=== PATIENT | female | born 1990 | race Caucasian/White ===

== ENCOUNTER 2017-05-18 16:34 | Emergency (ER) | payer OTHER ==
[~2017-05-18] VITALS: Ht 162.6 cm; Wt 58.3 kg
[~2017-05-18 16:34] MED LIST: CLEOCIN150 MG PO; DOXYCYCLINE HY100 MG PO; FIORICET WI1 CAPSULE PO; FLAGYL500 MG PO; HYDROCODON-ACE1 EAC7 PO; KLONOPIN0.5 M1 PO; LORAZEPAM0.5 MG PO; MACROBID100 MG PO; Motrin PO; NAPROSYN375 MG PO; PREDNISONE20 MG PO; PRENATAL1 EACH PO; PROMETHAZINE HC25 M1 PO; ROBITUSSIN AC,T10 ML PO; SERTRALINE HCL100 MG PO; SERTRALINE HCL50 MG PO; Tylenol Extra Streng PO; ULTRAM50 MG PO; ZITHROMAX Z-PA250 MG PO; ZITHROMAX250 MG PO; ZOFRAN ODT4 MG PO; ZOFRAN4 MG PO; ~No Medications
[2017-05-18 17:23] LABS: HEMATOCRIT 42.2 % (36.0-46.0); MCH 31.2 PG (29.0-34.0); MCHC 32.9 G/DL (30.0-36.0); MCV 94.8 FL (83-99); MEAN PLAT.VOLUME 9.5 uM^3 (9.5-12.4); PLATELET COUNT 280 K/uL (156-360); RBC DIS.WIDTH-CV 11.9 % (11.8-14.6); RBC DIS.WIDTH-SD 41.4 % (39-53); RED BLOOD COUNT 4.45 M/uL (3.80-5.20); WHITE BLOOD COUNT 7.9 K/uL (4.1-10.2)
[2017-05-18 17:32] LABS: CHLORIDE 108 mEq/L (99-109); POTASSIUM 4.2 mEq/L (3.7-5.4); SODIUM 140 mEq/L (136-147)
[2017-05-18 17:34] LABS: GLUCOSE 94 mg/dL (70-99)
[2017-05-18 17:36] LABS: ANION GAP 11 MEQ/L (2-14); TOTAL BILIRUBIN 0.5 mg/dL (0.0-1.0)
[2017-05-18 17:38] LABS: ALKALINE PHOSPHATASE 79 IU/L (3-129); GFR ESTIMATE (CALCULATED) > 59 mL/min/
[2017-05-18 17:39] LABS: UREA NITROGEN (BUN) 10 mg/dL (9-23)
[2017-05-18 17:47] LABS: QUANTITATIVE HCG 423.5 MIU/ML
[2017-05-18 18:31] LABS: ADD MIUA? YES; BILIRUBIN SMALL; BLOOD NEGATIVE; COLOR AMBER ((YELLOW)); GLUCOSE (STRIP) NEGATIVE; KETONES NEGATIVE; LEUKOCYTES NEGATIVE; NITRITE NEGATIVE; PROTEIN (STRIP) 30; SPECIFIC GRAVITY 1.033 (1.000-1.030)
[2017-05-18 18:45] LABS: BACTERIA 1+ /HPF; CASTS PRESENT /LPF; CRYSTALS NONE SEEN; EPITHELIAL CELLS 1+ /HPF; HYALINE CASTS 0-5 /LPF; MUCUS 3+ /LPF; RED BLOOD CELLS 0-5 /HPF (0-5); UCUL ADDED? NO; WHITE BLOOD CELLS 0-5 /HPF (0-5)
[2017-05-18 20:50] VITALS: BP 94/72
== END 2017-05-18 20:51 | disposition home or self-care (01) ==
LOC: EME 16:34
DX: O26.891 Other specified pregnancy related conditions, first trimester (principal); R10.32 Left lower quadrant pain; N83.201 Unspecified ovarian cyst, right side; O99.331 Smoking (tobacco) complicating pregnancy, first trimester; F17.200 Nicotine dependence, unspecified, uncomplicated
CPT/HCPCS: 76801; 76856; 80053; 81003; 84702; 85027; 87086; 99281; 99284; J1885

== ENCOUNTER → 2017-11-04 | Outpatient (CLI) | payer OTHER ==
[~2017-11-04] VITALS: Ht 162.6 cm; Wt 64.2 kg
[~2017-11-04] MED LIST changes: +PRENATAL VITAM1 EA11 PO
[2017-11-04 10:11] VITALS: BP 107/65
== END | disposition home or self-care (01) ==
LOC: IVINF 10:00
DX: Z31.82 Encounter for Rh incompatibility status (principal); Z3A.28 28 weeks gestation of pregnancy; Z67.11 Type A blood, Rh negative
CPT/HCPCS: 96372; J2790

== ENCOUNTER 2018-01-24 21:27 | Inpatient (IN) | payer OTHER ==
[~2018-01-24] VITALS: Ht 162.6 cm; Wt 72.7 kg
[2018-01-24 21:39] VITALS: BP 130/82
[2018-01-24 22:23] VITALS: BP 107/64
[2018-01-24 23:06] LABS: BASOPHIL (%) 0.7 % (0-1); BASOPHIL COUNT 0.1 K/uL (0-0.1); EOSINOPHIL (%) 1.6 % (0-5); EOSINOPHIL COUNT 0.2 K/uL (0-0.3); HEMATOCRIT 32.7 % (36.0-46.0); HEMOGLOBIN 10.6 G/DL (11.9-15.5); IMMATURE GRANULOCYTE (%) 0.6 % (0.0-0.7); LYMPHOCYTE (%) 23.1 % (15-42); LYMPHOCYTE COUNT 2.8 K/uL (1.0-2.8); MCHC 32.4 G/DL (30.0-36.0); MCV 89.3 FL (83-99); MONOCYTE (%) 7.8 % (3-12); MONOCYTE COUNT 0.9 K/uL (0-0.8); NEUTROPHIL (%) 66.2 % (45-76); PLATELET COUNT 373 K/uL (156-360); RBC DIS.WIDTH-CV 12.5 % (11.8-14.6); RBC DIS.WIDTH-SD 40.8 % (39-53); RED BLOOD COUNT 3.66 M/uL (3.80-5.20)
[2018-01-24 23:34] VITALS: BP 121/55
[2018-01-25] VITALS (20 sets, daily range): BP systolic 96–129; BP diastolic 49–84
[2018-01-25] MEDS ORDERED: IRON325 M1 PO (06:13)
[2018-01-25 09:39] LABS: AMPHETAMINE NEGATIVE (500 ng/mL); BARBITURATES NEGATIVE (200 ng/mL); BENZODIAZEPINES NEGATIVE (150 ng/mL); BUPRENORPHINE NEGATIVE (10 ng/mL); COCAINE NEGATIVE (150 ng/mL); METHADONE NEGATIVE (200 ng/mL); METHAMPHETAMINE NEGATIVE (500 ng/mL); OPIATES (MORPHINE) NEGATIVE (100 ng/mL); OXYCODONE NEGATIVE (100 ng/mL); PHENCYCLIDINE NEGATIVE (25 ng/mL); PROPOXYPHENE NEGATIVE (300 ng/mL); THC CANNABINOIDS NEGATIVE (50 ng/mL); TRICYCLIC ANTIDEPRESSANTS NEGATIVE (300 ng/mL)
[2018-01-25] MEDS ORDERED: IBUPROFEN800 MG PO (15:45)
[2018-01-26 07:24] VITALS: BP 119/67
[2018-01-26 15:31] VITALS: BP 119/70
== END 2018-01-26 17:50 | disposition home or self-care (01) | DRG 775 ==
LOC: LDRP-OP 21:27 → 2WEST 21:28 → LDRP-OP 03-24 11:57
PROVIDERS: Advanced Practice Midwife; Midwife
PROC: 10E0XZZ Delivery of Products of Conception, External Approach (ICD-10-PCS; principal; 2018-01-25)
PROC: 10907ZC Drainage of Amniotic Fluid, Therapeutic from Products of Conception, Via Natural or Artificial Opening (ICD-10-PCS; 2018-01-25)
PROC: 00HU33Z Insertion of Infusion Device into Spinal Canal, Percutaneous Approach (ICD-10-PCS; 2018-01-25)
PROC: 3E0S3BZ Introduction of Anesthetic Agent into Epidural Space, Percutaneous Approach (ICD-10-PCS; 2018-01-25)
DX: O99.02 Anemia complicating childbirth (principal); D50.9 Iron deficiency anemia, unspecified; Z37.0 Single live birth; Z3A.40 40 weeks gestation of pregnancy; E28.2 Polycystic ovarian syndrome; F41.9 Anxiety disorder, unspecified; F31.9 Bipolar disorder, unspecified; O99.344 Other mental disorders complicating childbirth; Z87.891 Personal history of nicotine dependence; Z90.49 Acquired absence of other specified parts of digestive tract; Z88.2 Allergy status to sulfonamides
CPT/HCPCS: 85025; C1755; G0378; J3010; J7120